=== PATIENT | female | born 1950 | race Caucasian/White ===

== ENCOUNTER 2020-11-28 09:40 | Emergency (ER) | payer OTHER, BC ==
[~2020-11-28] VITALS: Ht 160 cm; Wt 95.3 kg
[~2020-11-28 09:40] MED LIST: BENADRYL ALLERG25 MG PO; CARVEDILOL6.25 MG PO; DIOVAN160 MG PO; DIOVAN40 MG PO; IBUPROFEN 200200 M1 PO; MAGNEBIND 4001 EACH PO; TYLENOL325 MG PO; XANAX 0.5 MG0.5 MG PO
[2020-11-28] MEDS ORDERED: HTN (10:02)
[2020-11-28] MEDS ORDERED: ANTIANXIETY (10:02)
[2020-11-28] MEDS ORDERED: GABAPENTIN100 MG PO (10:03)
[2020-11-28 10:34] LABS: URINE BLOOD 3+ (Negative); URINE CLARITY SL CLOUDY; URINE COLOR RED; URINE GLUCOSE-RANDOM NEGATIVE (Negative); URINE KETONES NEGATIVE (Negative); URINE PROTEIN 2+ (Negative); URINE UROBILINOGEN 0.2 E.U./dl (0.2-1.0)
[2020-11-28 10:40] LABS: ICTOTEST (BILI CONFIRMATORY) Negative (Negative); URINE BILIRUBIN 1+ (Negative); URINE LEUKOCYTES-REFLEX 2+ (Negative); URINE NITRITE-REFLEX POSITIVE (Negative)
[2020-11-28 10:44] LABS: BACTERIA-REFLEX >30 Many /HPF (None Seen); CASTS None Seen /LPF (None Seen); CRYSTALS None Seen /LPF (None Seen); SQUAMOUS 0-3 Few /LPF (0-3); URINE RBC >20 Many /HPF (0-2); URINE WBC-REFLEX >25 Many /HPF (0-5)
[2020-11-28] MEDS ORDERED: MACROBID 100 M100 MG PO (10:53)
[2020-11-28] MEDS ORDERED: PYRIDIUM200 MG PO (10:53)
[2020-11-28 11:15] VITALS: BP 179/72
== END 2020-11-28 11:17 | disposition home or self-care (01) ==
LOC: M.ERS 09:40
PROVIDERS: Emergency Medicine Emergency Medical Services
DX: N39.0 Urinary tract infection, site not specified (principal); M79.642 Pain in left hand; I10 Essential (primary) hypertension; F41.9 Anxiety disorder, unspecified; Z98.51 Tubal ligation status; Z87.42 Personal history of other diseases of the female genital tract; Z90.711 Acquired absence of uterus with remaining cervical stump; Z88.1 Allergy status to other antibiotic agents; Z91.018 Allergy to other foods; Z91.040 Latex allergy status; Z88.0 Allergy status to penicillin